=== PATIENT | female | born 1945 | race African-American/Black ===

== ENCOUNTER 2022-02-01 10:41 | Day surgery (SDC) | payer MEDICARE, SELFPAY ==
[2022-01-25 13:18] VITALS: BMI 33.5
[2022-02-01 11:05] VITALS: BP 132/83; PULSE 90; RESP 20; TEMP 36.6; O2SAT 100
[2022-02-01] MEDS: LACTATED RINGERS 1,000 ML 150 ML IV CONT (11:23)
--- NOTE | 2022-02-01 11:31 | WPDANESEPPF ---
Anes - Initial Pre Proc Eval Procedure: Operation Date: 02/01/22 13:00 Proposed Procedures p Screening Colonoscopy - Augie Parker MD Date/Time: 02/01/22 11:31 Surgeon: Augie Parker MD Pre Op Diagnosis: Neoplasm Screening Patient Data Age: 76 Gender: F Height: 1.57 m Weight: 80.8 kg Last Vital Signs Temp 36.6 C 02/01/22 11:05 Pulse 90 02/01/22 11:05 Resp 20 02/01/22 11:05 BP 132/83 02/01/22 11:05 Pulse Ox 100 02/01/22 11:05 O2 Del Method Room Air 02/01/22 11:05 Allergies Allergy/AdvReac Type Severity Reaction Status Date / Time Penicillins Allergy Unknown Hives Verified 02/01/22 11:07 Home Medications Medication Instructions Recorded Confirmed Type adapalene 0.3 % topical gel 1 applic topical QPM 10/06/20 01/25/22 History amlodipine 5 mg tablet 5 mg PO DAILY 10/06/20 01/25/22 History azelaic acid 15 % topical gel 1 applic topical BID 10/06/20 01/25/22 History carboxymethylcellulose sodium 0.5 1 drp EACH EYE BID 10/06/20 01/25/22 History % eye drops (Refresh Tears) diclofenac sodium 1 % topical gel 4 g topical QID 10/06/20 01/25/22 History gabapentin 300 mg capsule 300 mg PO DAILY 10/06/20 01/25/22 History hydrochlorothiazide 12.5 mg tablet 12.5 mg PO DAILY 10/06/20 01/25/22 History hydrocortisone butyrate 0.1 % 1 applic topical BID 10/06/20 01/25/22 History topical cream lifitegrast 5 % eye drops in a 1 drp EACH EYE BID 10/06/20 01/25/22 History dropperette (Xiidra) lutein 6 mg capsule 6 mg PO DAILY 10/06/20 01/25/22 History tretinoin 0.025 % topical gel 1 applic topical QHS 10/06/20 01/25/22 History Patient hx anesthesia problems: none Family hx anesthesia problems: none Results Review: All pre-operative results and documents have been reviewed as part of the pre-operative evaluation. PMFSH Past Medical History Medical History Dry eye Family history of dyslipidemia Fibroid tumor Hearing loss History of diverticulitis History of IBS History of keloid of skin History of migraine headaches History of neuropathy History of vitamin D deficiency HTN (hypertension) Hx of acne Hx of gastroesophageal reflux (GERD) Hx of osteoarthritis Hyperpigmentation Leukopenia Lumbar spinal stenosis Osteoarthritis Rt. Ankle and foot Osteopenia Rosacea Surgical History Surgical History History of bunionectomy History of carpal tunnel release right History of cataract surgery right History of knee replacement (~2007) History of left hip replacement History of shoulder surgery (~2017) left shoulder Family History Family History Mother Hypertension Family history of coronary artery disease, Onset Age: 73 Patient's mother is Sibling S/P brain surgery Leukopenia Other Diabetes mellitus Social History Social History Smoking status: Never smoker Second hand tobacco smoke exposure: No Alcohol intake: never Substance use: never Substance use type: does not use Living arrangements: alone Spiritual care concerns: No Anes - Eval Final PreProcedure Day of Procedure 02/01/22 11:31 Patient weight: obese Heart: regular rate and rhythm Lungs: clear to auscultation Airway: Mallampati scale class II Neurological: other (alert) Last oral intake: >/= 8 hours ASA classification: III Emergent: no Anesthetic plan: proceed Anesthesia type and monitoring: general GIVS and standard monitoring Results Review: All pre-operative results and documents have been reviewed as part of the pre-operative evaluation. Informed Consent: The patient's anesthetic plan and its attendant risks and benefits were discussed with the patient/family/POA. Questions were solicited and
--- NOTE | 2022-02-01 11:48 | PM.HPGS ---
History of Present Illness History of Present Illness Consent: Risks, benefits, and alternatives have been discussed and questions answered. Patient agrees to proceed with procedure. Chief complaint: Neoplasm Screening Narrative: Carmen Mathur is a 76 year old female with colon polyp 6-7 years ago Review of Systems Constitutional: Constitutional: Denies headache(s) and Denies weakness Eyes: Eyes: Denies blurry vision ENT: Reports Normal hearing present, Denies headache(s) and Denies neck pain Cardiovascular: Cardiovascular: Denies chest pain and Denies dyspnea Respiratory: Respiratory: Denies dyspnea Gastrointestinal: Gastrointestinal: Reports no additional gastrointestinal complaints Genitourinary: Genitourinary: Denies dysuria Musculoskeletal: Musculoskeletal: Denies neck pain Integumentary/Breasts: Skin/Breast: Denies dry skin Neurologic: Reports Normal hearing present, Denies headache(s) and Denies weakness Psychiatric: Psychiatric: Denies anxiety Endocrine: Endocrine: Denies change in body appearance Hematologic/Lymphatic: Hematologic/Lymphatic: Denies easy bleeding Allergic/Immunologic: Allergic/Immunologic: Denies urticaria PMFSH Past Medical History Medical History (Updated 02/01/22 @ 11:48 by Augie Parker MD) Colon polyp Dry eye Family history of dyslipidemia Fibroid tumor Hearing loss History of diverticulitis History of IBS History of keloid of skin History of migraine headaches History of neuropathy History of vitamin D deficiency HTN (hypertension) Hx of acne Hx of gastroesophageal reflux (GERD) Hx of osteoarthritis Hyperpigmentation Leukopenia Lumbar spinal stenosis Osteoarthritis Rt. Ankle and foot Osteopenia Rosacea Surgical History Surgical History History of bunionectomy History of carpal tunnel release right History of cataract surgery right History of knee replacement (~2007) History of left hip replacement History of shoulder surgery (~2017) left shoulder Family History Family History Mother Hypertension Family history of coronary artery disease, Onset Age: 73 Patient's mother is Sibling S/P brain surgery Leukopenia Other Diabetes mellitus Social History Social History Smoking status: Never smoker Second hand tobacco smoke exposure: No Alcohol intake: never Substance use: never Substance use type: does not use Living arrangements: alone Spiritual care concerns: No Meds Home Medications and Allergies Home Medications Medication Instructions Recorded Confirmed Type adapalene 0.3 % topical gel 1 applic topical QPM 10/06/20 01/25/22 History amlodipine 5 mg tablet 5 mg PO DAILY 10/06/20 01/25/22 History azelaic acid 15 % topical gel 1 applic topical BID 10/06/20 01/25/22 History carboxymethylcellulose sodium 0.5 1 drp EACH EYE BID 10/06/20 01/25/22 History % eye drops (Refresh Tears) diclofenac sodium 1 % topical gel 4 g topical QID 10/06/20 01/25/22 History gabapentin 300 mg capsule 300 mg PO DAILY 10/06/20 01/25/22 History hydrochlorothiazide 12.5 mg tablet 12.5 mg PO DAILY 10/06/20 01/25/22 History hydrocortisone butyrate 0.1 % 1 applic topical BID 10/06/20 01/25/22 History topical cream lifitegrast 5 % eye drops in a 1 drp EACH EYE BID 10/06/20 01/25/22 History dropperette (Xiidra) lutein 6 mg capsule 6 mg PO DAILY 10/06/20 01/25/22 History tretinoin 0.025 % topical gel 1 applic topical QHS 10/06/20 01/25/22 History Allergies Allergy/AdvReac Type Severity Reaction Status Date / Time Penicillins Allergy Unknown Hives Verified 02/01/22 11:07 Vital Signs Vital Signs - 24 hr 02/01/22 11:05 Temperature 97.8 F Pulse Rate 90 Respiratory Rate 20 Blood Pressure 132/83 Pulse Oximetry 10
[2022-02-01 12:04] VITALS: BP 106/68; PULSE 88; RESP 16; O2SAT 99
[2022-02-01 12:14] VITALS: BP 100/62; PULSE 85; RESP 16; O2SAT 95
--- NOTE | 2022-02-01 12:20 | WPDANESPN ---
Anes - Prog Note Post-Op Date/Time: 02/01/22 12:20 Cardiovascular status: normal Respiratory status: normal Airway patency: baseline Mental status: baseline Post-Op hydration status: normal Vital Signs: Last Vital Signs Temp 36.6 C 02/01/22 11:05 Pulse 85 02/01/22 12:14 Resp 16 02/01/22 12:14 BP 100/62 02/01/22 12:14 Pulse Ox 95 02/01/22 12:14 O2 Del Method Room Air 02/01/22 12:14 Pain Score (VAS): 0 I/O: Intake & Output 01/31/22 02/01/22 02/01/22 23:59 07:59 15:59 Intake Total 200 Balance 200 Patient Feedback: Patient satisfied with anesthetic care.
== END 2022-02-01 12:45 | disposition home or self-care (01) ==
PROVIDERS: PCP Internal Medicine; Visit Provider Internal Medicine Gastroenterology
PROC: 0DJD8ZZ Inspection of Lower Intestinal Tract, Via Natural or Artificial Opening Endoscopic (ICD-10-PCS; CPT 45378; principal; 2022-02-01 13:00)
DX: Z86.010 Personal history of colon polyps (principal)
CPT/HCPCS: 45378

== ENCOUNTER 2023-11-03 15:59 | Outpatient (CLI) | payer MEDICARE, SELFPAY ==
[2023-11-03 16:45] LABS: Basophils Percent Auto 0.7 % (0.2-1.2); Eosinophils Absolute Auto 0.1 K/mm3 (0-0.3); Eosinophils Percent Auto 2.1 % (0-4.4); Hematocrit 38.6 % (37.0-47.0); Hemoglobin 12.9 g/dL (12.0-15.0); Immature Granulocyte Absolute 0.01 K/mm3 (0.00-0.031); Immature Granulocyte Percent A 0.3 % (0-0.5); Lymphocytes Absolute Auto 1.15 K/mm3 (0.9-3.2); Lymphocytes Percent Auto 39.9 % (18.3-44.2); Mean Corpuscular HGB Conc 33.4 g/dl (32-36); Mean Corpuscular Hemoglobin 30.4 pg (26-34); Mean Corpuscular Volume 90.8 fl (80-100); Mean Platelet Volume 10.2 fl (7.4-10.4); Monocytes Absolute Auto 0.3 K/mm3 (0.1-0.6); Monocytes Percent Auto 10.1 % (2.6-8.5); Neutrophils Absolute Auto 1.4 K/mm3 (1.3-6.7); Neutrophils Percent Auto 46.9 % (45.5-73.1); Platelet Count Result 255 k/mm3 (150-375); Red Blood Count 4.25 M/mm3 (4.2-5.4); Red Cell Distribution Width 12.9 % (11.5-14.5); White Blood Count 2.9 K/mm3 (4.5-10.0)
[2023-11-10 22:04] LABS: Vitamin D 1,25 (OH)2 Total 36 pg/mL (18-72); Vitamin D2 1,25 (OH)2 <8 pg/mL; Vitamin D3 1,25 (OH)2 36 pg/mL
== END 2023-11-03 16:00 | disposition home or self-care (01) ==
LOC: ANHLAB 16:09
PROVIDERS: PCP Internal Medicine; Visit Provider Internal Medicine
DX: E21.3 Hyperparathyroidism, unspecified (principal); I49.1 Atrial premature depolarization
CPT/HCPCS: 36415; 82652; 85025